=== PATIENT | male | born 1985 | race Two or more races ===

== ENCOUNTER 2019-08-09 21:53 | Emergency (ER) | payer OTHER ==
[~2019-08-09] VITALS: Ht 172.7 cm; Wt 79.4 kg
[2019-08-09 23:54] VITALS: BP 142/84
== END 2019-08-10 | disposition home or self-care (01) ==
LOC: EDBD 21:53 → ER 21:57 → EEVIPCON 21:57 → ER 08-10
DX: S96.911A Strain of unspecified muscle and tendon at ankle and foot level, right foot, initial encounter (principal); X58.XXXA Exposure to other specified factors, initial encounter; Y93.89 Activity, other specified; Y92.89 Other specified places as the place of occurrence of the external cause; Y99.8 Other external cause status
CPT/HCPCS: 73610